=== PATIENT | female | born 1965 | race Caucasian/White ===

== ENCOUNTER → 2016-05-21 | Outpatient (CLI) | payer OTHER ==
--- NOTE | 2016-05-21 16:12 | NM ---
Nuclear Medicine Whole Body Bone Scan Clinical Indications: Breast cancer with bone metastasis. Technique: 20.5 mCi technetium 99m MDP were injected intravenously. Delayed images of the skeleton were obtained in anterior and posterior projections. Comparison: Outside whole body scan from November 24, 2015, no report provided; plain radiographs May 21, 2016; MRI February 28, 2014. Findings: The area of increased uptake in the right jaw has returned to normal. Mild degenerative yadira nges are present in the shoulders. Photopenia over the chest likely represents breast implant. The ki dneys are symmetric. Persistent increased uptake is present in the left femur consistent with the int ramedullary metastatic lesion seen on the prior MRIs. Impressions 1. Persistent metabolic activity in the upper right femur consistent with the known metastatic breast cancer mass. This appears relatively stable in size comparing the prior bone scans and plain radiogr aphs. 2. Interval resolution of the increased activity in the right mandible.
--- NOTE | 2016-05-21 16:19 | DX ---
Left Hip, Two Views Clinical Indication: History of breast malignancy. Comparisons: Plain radiograph September 18, 2015; bone scan May 21, 2016. Findings: The bony pelvis is unremarkable. The right femur is normal. There is stability in the osteo sclerotic 2.3 cm left femoral intramedullary lesion seen at the level of the lesser trochanter. 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
== END ==
LOC: FIMAGING 10:44
PROVIDERS: ATTEND Internal Medicine Hematology & Oncology
DX: C79.51 Secondary malignant neoplasm of bone (principal); C50.411 Malignant neoplasm of upper-outer quadrant of right female breast
CPT/HCPCS: 73502; 78306; A9503

== ENCOUNTER → 2016-07-15 | Outpatient (CLI) | payer OTHER ==
[~2016-07-15] MED LIST: LIDOCAINE 1% 30 ML SDV ONE; NA BICARBONATE 50 MEQ/50 ML VIAL ONE
== END ==
LOC: FIMAGING 09:30
PROVIDERS: ATTEND Internal Medicine Hematology & Oncology
PROC: 07B13ZX Excision of Right Neck Lymphatic, Percutaneous Approach, Diagnostic (ICD-10-PCS; principal; 2016-07-15)
DX: C77.0 Secondary and unspecified malignant neoplasm of lymph nodes of head, face and neck (principal); C50.919 Malignant neoplasm of unspecified site of unspecified female breast

== ENCOUNTER → 2017-07-05 | Outpatient (CLI) | payer OTHER | LOC: FIMAGING 14:07 | PROVIDERS: ATTEND Internal Medicine Hematology & Oncology | DX: C41.4 Malignant neoplasm of pelvic bones, sacrum and coccyx (principal) ==

== ENCOUNTER → 2017-10-25 | Day surgery (SDC) | payer OTHER ==
--- NOTE | 2017-10-25 14:11 | PDRADPN ---
Radiology Procedure Note Date of Procedure: 10/25/17 Radiologist: Cesario Tom Anesthesia: Local (Specify) Pre-op Diagnosis: home abx needed Post-op Diagnosis: same Indication: access Procedure: PICC Finding(s): optimally positioned 40cm SL PICC. ok to use. Inf/Abcess present in the surg proc area at time of surgery?: No EBL: Minimal Complications: none
== END | disposition home or self-care (01) ==
LOC: FIMAGING 10:01
PROVIDERS: ATTEND Internal Medicine Infectious Disease
PROC: 02HV33Z Insertion of Infusion Device into Superior Vena Cava, Percutaneous Approach (ICD-10-PCS; principal; 2017-10-25)
DX: M87.9 Osteonecrosis, unspecified (principal); R68.84 Jaw pain
CPT/HCPCS: 36569; 77001; C1751